=== PATIENT | female | born 1960 | race Caucasian/White ===

== ENCOUNTER 2025-05-29 13:46 | Emergency (ER) | payer OTHER ==
[~2025-05-29] VITALS: Ht 162.6 cm; Wt 61.1 kg
[~2025-05-29 13:46] MED LIST: PAROXETINE HCL40 MG PO; PAXIL20 MG PO; VITAMIN D31250 MCG PO
[2025-05-29] MEDS ORDERED: FLUTICASONE PRO16 GM NAS (14:05)
[2025-05-29] MEDS ORDERED: CEREFOLIN TABL1 EACH PO (14:05)
[2025-05-29] MEDS ORDERED: CEPHALEXIN500 M1 PO (15:24)
[2025-05-29 15:46] VITALS: BP 133/85
== END 2025-05-29 15:47 | disposition home or self-care (01) ==
LOC: ED 13:46
DX: S67.197A Crushing injury of left little finger, initial encounter (principal); S62.637A Displaced fracture of distal phalanx of left little finger, initial encounter for closed fracture; S61.217A Laceration without foreign body of left little finger without damage to nail, initial encounter; W23.0XXA Caught, crushed, jammed, or pinched between moving objects, initial encounter; Z79.51 Long term (current) use of inhaled steroids
CPT/HCPCS: 12001; 73140; 99283